=== PATIENT | female | born 1975 | race Hispanic/Latino ===

== ENCOUNTER 2022-10-05 13:04 | Inpatient (IN) | payer OTHER, MEDICAID ==
[~2022-10-05] VITALS: Ht 160 cm; Wt 168.2 kg
[~2022-10-05 13:04] MED LIST: AEC81 PO; AMLO-258 PO; ATOR40TA71 PO; CALC-866 PO; FERR-72 PO; GABA-529 PO; LISI20TA24 PO; METF-444 PO; MULT-952 PO; OMEP40CA21 PO; SEMA2PEN SQ
[2022-10-05] MEDS ORDERED: 0.9%NACL 1000ML 1,000 ML IV ONE (14:30)
[2022-10-05 15:45] LABS: APPEARANCE,URINE CLOUDY (CLEAR); BILIRUBIN,URINE NEGATIVE (NEGATIVE); COLOR,URINE YELLOW (YELLOW); GLUCOSE, URINE (UA) NEGATIVE (NEGATIVE); KETONES,URINE NEGATIVE (NEGATIVE); LEUKOCYTE ESTERASE ,URINE 500 Leu/uL (NEGATIVE); NITRATE,URINE NEGATIVE (NEGATIVE); OCCULT BLOOD,URINE LARGE (NEGATIVE); PH,URINE 5.5 (5.0-8.0); PROTEIN,URINE 50 mg/dL (NEGATIVE); UROBILINOGEN,URINE 0.2 mg/dL (0.2-1.0)
[2022-10-05 15:47] LABS: ADD UA MICROSCOPIC YES
[2022-10-05 15:51] LABS: BACTERIA,URINE FEW /HPF (None Seen); MUCUS,URINE RARE LPF (None Seen); RBC,URINE TNTC /HPF (0-1); SQUAMOUS EPITHELIAL CELL,UR FEW /HPF (0-2); WBC,URINE 51-100 /HPF (0-1)
[2022-10-05 15:52] LABS: SARS-CoV-2, RNA, NAAT NEGATIVE SARS CoV-2 (NEGATIVE)
[2022-10-05 15:53] LABS: BASOPHILS # (AUTO) 0.05 K/uL (0.00-0.20); BASOPHILS % (AUTO) 0.3 % (0.0-5.0); EOSINOPHILS # (AUTO) 0.01 K/uL (0.00-0.70); EOSINOPHILS % (AUTO) 0.1 % (0.0-8.0); HEMATOCRIT 27.7 % (36-48); IMMATURE GRANULOCYTE ABSOLUTE 0.14 K/uL (0-1); LYMPHOCYTES # (AUTO) 0.3 K/uL (1.0-4.8); LYMPHOCYTES % (AUTO) 1.7 % (21.0-51.0); MEAN CORPUSCULAR HEMOGLOBIN 23.8 pg (27.0-33.0); MEAN CORPUSCULAR HGB CONC 29.2 g/dL (32.0-36.0); MEAN CORPUSCULAR VOLUME 81.5 fL (79-99); MONOCYTES # (AUTO) 0.5 K/uL (0.1-1.0); MONOCYTES % (AUTO) 2.6 % (3.0-13.0); NEUTROPHILS # (AUTO) 18.9 K/uL (1.8-7.7); NEUTROPHILS % (AUTO) 94.6 % (40.0-77.0); PLATELET COUNT (AUTO) 372 K/uL (130-400); RED CELL DISTRIBUTION WIDTH 17.6 % (11.0-15.5); WHITE BLOOD COUNT (AUTO) 19.9 K/uL (4.8-10.8)
[2022-10-05 15:56] LABS: RAPID GROUP A STREP negative (NEGATIVE)
[2022-10-05] MEDS ORDERED: CEFTRIAXONE 1G VIAL IM ONE (16:00)
[2022-10-05 16:06] LABS: INFLUENZA TYPE A Negative For Type A (NEGATIVE); INFLUENZA TYPE B Negative For Type B (NEGATIVE)
[2022-10-05 16:07] LABS: ALBUMIN 3.1 g/dL (3.5-5.0); BILIRUBIN,TOTAL 0.6 mg/dL (0.2-1.0); CREATININE 1.3 mg/dL (0.5-1.5); POTASSIUM 4.2 mmol/L (3.5-5.1); TOTAL PROTEIN, SERUM 7.6 g/dL (6.0-8.3)
[2022-10-05 16:26] LABS: BAND NEUTROPHILS % (MANUAL) 27 % (0-2); LYMPHOCYTES % (MANUAL) 3 % (22-44); MAN.DIFF COMMENT-IMPRESSION MANUAL DIFFERENTIAL; PLATELET MORPHOLOGY COMMENT ADEQUATE; SEGMENTED NEUTROPHILS % 70 % (40-70); TOTAL CELLS COUNTED 100; WBC MORPHOLOGY CONSISTENT W/DIFF
[2022-10-05] MEDS ORDERED: IOHEXOL 350 MG/ML 100ML INFUS..BTL IV ONE (17:13)
[2022-10-05] MEDS ORDERED: ONDANSETRON ODT 4MG TAB SL PRN (18:30)
[2022-10-05] MEDS ORDERED: ACETAMINOPHEN 325 MG TAB PO PRN (18:30)
[2022-10-05] MEDS ORDERED: LORA10TA7 PO (18:44)
[2022-10-05] MEDS ORDERED: [UNRECOGNIZED DRUG - CODE] MC (18:47)
[2022-10-05 22:55] VITALS: BP 98/48; PULSE 109; RESP 20
[2022-10-05 22:56] VITALS: O2SAT 2
[2022-10-06] VITALS (8 sets, daily range): BP systolic 100–128; BP diastolic 51–74; PULSE 86–108; RESP 17–24; O2SAT 2–98
[2022-10-06] MEDS ORDERED: ESCI-8 PO (01:36)
[2022-10-06 05:23] LABS: BASOPHILS # (AUTO) 0.03 K/uL (0.00-0.20); BASOPHILS % (AUTO) 0.3 % (0.0-5.0); EOSINOPHILS # (AUTO) 0.02 K/uL (0.00-0.70); EOSINOPHILS % (AUTO) 0.2 % (0.0-8.0); HEMATOCRIT 25.5 % (36-48); IMMATURE GRANULOCYTE ABSOLUTE 0.05 K/uL (0-1); LYMPHOCYTES # (AUTO) 0.9 K/uL (1.0-4.8); LYMPHOCYTES % (AUTO) 7.9 % (21.0-51.0); MEAN CORPUSCULAR HEMOGLOBIN 24.1 pg (27.0-33.0); MEAN CORPUSCULAR HGB CONC 29.4 g/dL (32.0-36.0); MONOCYTES # (AUTO) 1.1 K/uL (0.1-1.0); MONOCYTES % (AUTO) 9.2 % (3.0-13.0); NEUTROPHILS # (AUTO) 9.7 K/uL (1.8-7.7); PLATELET COUNT (AUTO) 271 K/uL (130-400); RED BLOOD CELL COUNT(AUTO) 3.11 MIL/uL (4.00-5.50); WHITE BLOOD COUNT (AUTO) 11.8 K/uL (4.8-10.8)
[2022-10-06 05:32] LABS: MAGNESIUM 1.1 mg/dL (1.80-2.40); POTASSIUM 4.2 mmol/L (3.5-5.1)
[2022-10-06] MEDS: MAGNESIUM 2GM PREMIX 50ML 50 ML IV PRN ×3 (06:43→21:12)
[2022-10-06] MEDS: ENOXAPARIN SODIUM 30 MG/0.3 ML SQ SCH (09:12)
[2022-10-06 13:49] LABS: TOTAL IRON BINDING CAPACITY 280 mcg/dL (250-450)
[2022-10-06 14:13] LABS: % IRON SATURATION 1.7 % (22-44); IRON, SERUM < 5 mcg/dL (50-170)
[2022-10-06] MEDS: CEFTRIAXONE 1G VIAL IVPB SCH (16:42)
[2022-10-06] MEDS ORDERED: MAGNESIUM 4GM PREMIX 100ML 100 ML IV PRN (17:00)
[2022-10-06 17:02] LABS: FERRITIN 44 ng/mL (15-150)
[2022-10-07] VITALS (20 sets, daily range): BP systolic 99–138; BP diastolic 58–78; PULSE 64–94; RESP 20–24; O2SAT 96–98
[2022-10-07] MEDS: ENOXAPARIN SODIUM 30 MG/0.3 ML SQ SCH (09:00)
[2022-10-07 10:29] LABS: CREATININE 0.8 mg/dL (0.5-1.5); POTASSIUM 4.3 mmol/L (3.5-5.1)
[2022-10-07] MEDS ORDERED: PROPOFOL 10 MG/ML 20ML VIAL IV ONE (12:04)
[2022-10-07] MEDS ORDERED: LIDOCAINE PF 100MG/5ML (2%) SYRINGE 5ML ONE (12:05)
[2022-10-07] MEDS ORDERED: KETAMINE 50MG/ML SYRINGE 50 MG/ML DISP.SYRIN ONE (12:08)
[2022-10-07] MEDS ORDERED: MIDAZOLAM HCL 1 MG/ML 2ML VIAL ONE (12:11)
[2022-10-07] MEDS ORDERED: DEXAMETHASONE SOD PHOSPHATE 10MG/ML 1ML VIAL ONE (12:24)
[2022-10-07] MEDS ORDERED: BISACODYL 5 MG TABLET.DR PO ONE (14:00)
[2022-10-07 14:35] LABS: HEMATOCRIT 23.8 % (36-48); MEAN CORPUSCULAR HEMOGLOBIN 24.1 pg (27.0-33.0); MEAN CORPUSCULAR HGB CONC 29.4 g/dL (32.0-36.0); MEAN CORPUSCULAR VOLUME 82.1 fL (79-99); RED BLOOD CELL COUNT(AUTO) 2.9 MIL/uL (4.00-5.50); RED CELL DISTRIBUTION WIDTH 17.5 % (11.0-15.5); WHITE BLOOD COUNT (AUTO) 6.9 K/uL (4.8-10.8)
[2022-10-07] MEDS ORDERED: PHARMACY COMMUNICATION MISC SCH (15:00)
[2022-10-07] MEDS ORDERED: LACTULOSE 20 GM/30 ML UDCUP PO ONE (15:00)
[2022-10-07] MEDS ORDERED: PEG 3350/NA SULF,BICARB,CL/KCL 4000 ML SOLN PO ONE (16:00)
[2022-10-07] MEDS: CEFTRIAXONE 1G VIAL IVPB SCH (18:16)
[2022-10-08] VITALS (27 sets, daily range): BP systolic 96–137; BP diastolic 53–78; PULSE 54–89; RESP 14–22; O2SAT 98–99
[2022-10-08 06:43] LABS: HEMATOCRIT 23.2 % (36-48); MEAN CORPUSCULAR HEMOGLOBIN 24.1 pg (27.0-33.0); MEAN CORPUSCULAR HGB CONC 30.6 g/dL (32.0-36.0); MEAN CORPUSCULAR VOLUME 78.9 fL (79-99); RED BLOOD CELL COUNT(AUTO) 2.94 MIL/uL (4.00-5.50); RED CELL DISTRIBUTION WIDTH 17.2 % (11.0-15.5); WHITE BLOOD COUNT (AUTO) 6.3 K/uL (4.8-10.8)
[2022-10-08 06:51] LABS: CREATININE 0.9 mg/dL (0.5-1.5); POTASSIUM 3.9 mmol/L (3.5-5.1)
[2022-10-08] MEDS: ENOXAPARIN SODIUM 30 MG/0.3 ML SQ SCH (08:27)
[2022-10-08] MEDS: PANTOPRAZOLE 40 MG TAB DR PO SCH (08:28)
[2022-10-08] MEDS ORDERED: LIDOCAINE PF 100MG/5ML (2%) SYRINGE 5ML ONE (13:22)
[2022-10-08] MEDS ORDERED: PROPOFOL 10 MG/ML 20ML VIAL IV ONE (13:22)
[2022-10-08] MEDS: CEFTRIAXONE 1G VIAL IVPB SCH (17:22)
[2022-10-09] VITALS (33 sets, daily range): BP systolic 99–140; BP diastolic 32–78; PULSE 59–87; RESP 16–22; O2SAT 95–100
[2022-10-09 05:10] LABS: HEMATOCRIT 25.3 % (36-48); MEAN CORPUSCULAR HEMOGLOBIN 24.2 pg (27.0-33.0); MEAN CORPUSCULAR VOLUME 80.6 fL (79-99); RED BLOOD CELL COUNT(AUTO) 3.14 MIL/uL (4.00-5.50); RED CELL DISTRIBUTION WIDTH 17.2 % (11.0-15.5); WHITE BLOOD COUNT (AUTO) 6.5 K/uL (4.8-10.8)
[2022-10-09 05:23] LABS: CREATININE 1.1 mg/dL (0.5-1.5); POTASSIUM 3.8 mmol/L (3.5-5.1)
[2022-10-09] MEDS: ENOXAPARIN SODIUM 30 MG/0.3 ML SQ SCH (09:00)
[2022-10-09] MEDS: PANTOPRAZOLE 40 MG TAB DR PO SCH (09:32)
[2022-10-09] MEDS ORDERED: KETAMINE 50MG/ML SYRINGE 50 MG/ML DISP.SYRIN ONE (11:44)
[2022-10-09] MEDS ORDERED: PROPOFOL 10 MG/ML 20ML VIAL IV ONE (11:45)
[2022-10-09] MEDS ORDERED: MIDAZOLAM HCL 1 MG/ML 2ML VIAL ONE (11:45)
[2022-10-09] MEDS ORDERED: FENTANYL CITRATE PF 50 MCG/1 ML 2ML VIAL ONE (11:45)
[2022-10-09] MEDS ORDERED: SUCCINYLCHOLINE CHLORIDE 20 MG/ML 10 ML VIAL ONE (11:45)
[2022-10-09] MEDS ORDERED: LIDOCAINE PF 100MG/5ML (2%) SYRINGE 5ML ONE (11:45)
[2022-10-09] MEDS ORDERED: ONDANSETRON 4MG INJ ONE (12:01)
[2022-10-09] MEDS ORDERED: ROCURONIUM 10MG/1ML SYR 10 MG/ML ML ONE (12:11)
[2022-10-09] MEDS ORDERED: SUGAMMADEX SODIUM 200 MG/2 ML VIAL IV ONE (12:20)
[2022-10-09] MEDS: CEFTRIAXONE 1G VIAL IVPB SCH (16:47)
[2022-10-09] MEDS: MORPHINE 2 MG SYG IVP PRN ×2 (16:47→21:31)
[2022-10-10] VITALS (8 sets, daily range): BP systolic 117–134; BP diastolic 61–73; PULSE 63–71; RESP 16–21; O2SAT 95–97
[2022-10-10 05:30] LABS: HEMATOCRIT 24.3 % (36-48); MEAN CORPUSCULAR HEMOGLOBIN 24.5 pg (27.0-33.0); MEAN CORPUSCULAR HGB CONC 29.2 g/dL (32.0-36.0); MEAN CORPUSCULAR VOLUME 83.8 fL (79-99); RED BLOOD CELL COUNT(AUTO) 2.9 MIL/uL (4.00-5.50); RED CELL DISTRIBUTION WIDTH 17.1 % (11.0-15.5); WHITE BLOOD COUNT (AUTO) 7.1 K/uL (4.8-10.8)
[2022-10-10 05:38] LABS: CREATININE 1.2 mg/dL (0.5-1.5); MAGNESIUM 1.6 mg/dL (1.80-2.40); POTASSIUM 3.6 mmol/L (3.5-5.1)
[2022-10-10] MEDS: MAGNESIUM 2GM PREMIX 50ML 50 ML IV PRN (06:27)
[2022-10-10] MEDS: MORPHINE 2 MG SYG IVP PRN (06:55)
[2022-10-10] MEDS: PANTOPRAZOLE 40 MG TAB DR PO SCH (09:22)
[2022-10-10] MEDS: ENOXAPARIN SODIUM 30 MG/0.3 ML SQ SCH (09:24)
[2022-10-10] MEDS: CEFTRIAXONE 1G VIAL IVPB SCH (16:00)
[2022-10-11 05:00] VITALS: BP 136/78; PULSE 67; RESP 16
[2022-10-11 05:20] LABS: HEMATOCRIT 28.2 % (36-48)
[2022-10-11] MEDS: PANTOPRAZOLE 40 MG TAB DR PO SCH (07:50)
[2022-10-11] MEDS: ENOXAPARIN SODIUM 30 MG/0.3 ML SQ SCH (07:53)
[2022-10-11 08:00] VITALS: BP 150/84; PULSE 66; RESP 18; O2SAT 95
[2022-10-11 08:06] VITALS: PULSE 70; RESP 20; O2SAT 93
== END 2022-10-11 11:50 | disposition home or self-care (01) | DRG 853 ==
LOC: EDH 13:04 → EDHIP 18:20 → 3BH 22:55
PROVIDERS: ADMIT Internal Medicine Infectious Disease; ATTEND Internal Medicine Infectious Disease
PROC: 0DB98ZX Excision of Duodenum, Via Natural or Artificial Opening Endoscopic, Diagnostic (ICD-10-PCS; 2022-10-07)
PROC: 0DB78ZX Excision of Stomach, Pylorus, Via Natural or Artificial Opening Endoscopic, Diagnostic (ICD-10-PCS; 2022-10-07)
PROC: 0DB58ZX Excision of Esophagus, Via Natural or Artificial Opening Endoscopic, Diagnostic (ICD-10-PCS; 2022-10-07)
PROC: 0DB78ZZ Excision of Stomach, Pylorus, Via Natural or Artificial Opening Endoscopic (ICD-10-PCS; 2022-10-07)
PROC: 0DBK8ZX Excision of Ascending Colon, Via Natural or Artificial Opening Endoscopic, Diagnostic (ICD-10-PCS; 2022-10-08)
PROC: 0DBL8ZX Excision of Transverse Colon, Via Natural or Artificial Opening Endoscopic, Diagnostic (ICD-10-PCS; 2022-10-08)
PROC: 0DBN8ZX Excision of Sigmoid Colon, Via Natural or Artificial Opening Endoscopic, Diagnostic (ICD-10-PCS; 2022-10-08)
PROC: 0DBP8ZX Excision of Rectum, Via Natural or Artificial Opening Endoscopic, Diagnostic (ICD-10-PCS; 2022-10-08)
PROC: 0DBM8ZX Excision of Descending Colon, Via Natural or Artificial Opening Endoscopic, Diagnostic (ICD-10-PCS; 2022-10-08)
PROC: 0DBH8ZX Excision of Cecum, Via Natural or Artificial Opening Endoscopic, Diagnostic (ICD-10-PCS; 2022-10-08)
PROC: 30233N1 Transfusion of Nonautologous Red Blood Cells into Peripheral Vein, Percutaneous Approach (ICD-10-PCS; 2022-10-08)
PROC: 0UDB8ZZ Extraction of Endometrium, Via Natural or Artificial Opening Endoscopic (ICD-10-PCS; principal; 2022-10-09 11:44)
DX: A41.50 Gram-negative sepsis, unspecified (principal); R57.1 Hypovolemic shock; N39.0 Urinary tract infection, site not specified; Z68.44 Body mass index [BMI] 60.0-69.9, adult; K21.00 Gastro-esophageal reflux disease with esophagitis, without bleeding; Z20.822 Contact with and (suspected) exposure to COVID-19; E66.01 Morbid (severe) obesity due to excess calories; D64.9 Anemia, unspecified; I10 Essential (primary) hypertension; E11.9 Type 2 diabetes mellitus without complications; N92.0 Excessive and frequent menstruation with regular cycle; K29.00 Acute gastritis without bleeding; B96.20 Unspecified Escherichia coli [E. coli] as the cause of diseases classified elsewhere; E78.5 Hyperlipidemia, unspecified; J44.9 Chronic obstructive pulmonary disease, unspecified; Z80.0 Family history of malignant neoplasm of digestive organs; Z80.49 Family history of malignant neoplasm of other genital organs; Z82.3 Family history of stroke; Z82.49 Family history of ischemic heart disease and other diseases of the circulatory system; Z83.3 Family history of diabetes mellitus; Z86.16 Personal history of COVID-19
CPT/HCPCS: 36415; 36430; 43239; 43251; 45380; 71045; 71270; 76856; 80048; 80053; 81001; 82607; 82728; 82948; 83540; 83550; 83735; 84702; 84703; 85014; 85018; 85025; 85027; 85378; 86677; 86850; 86900; 86901; 86923; 87077; 87088; 87186; 87635; 87804; 87880; 88305; 93005; 93970; 94660; A4355; A4606; C9803; G0378; J0330; J0696; J1100; J1650; J2001; J2250; J2270; J2405; J2704; J3010; J3475; J7030; P9016; Q9967; A4215; A4216; A4222; A4223; A4351; A4620; A4657; A7002; J3490

== ENCOUNTER 2023-07-19 08:23 | Inpatient (IN) | payer MEDICARE ==
[2023-07-19] VITALS (22 sets, daily range): BP systolic 96–151; BP diastolic 59–106; PULSE 77–122; RESP 16–30; TEMP 100; O2SAT 94–98
[~2023-07-19] VITALS: Ht 160 cm; Wt 177.2 kg
[~2023-07-19 08:23] MED LIST changes: +ALBU90AE2 IH; +ASCO500T20 PO; +DAPA10TA PO; +ESCI-8 PO; +GLYB2.5T5 PO; +LORA10TA7 PO; +MAGN400T40 PO; +MEGE40TA8 PO; -OMEP40CA21 PO; +PANT40TA54 PO
[2023-07-19] MEDS: ACETAMINOPHEN 500 MG TABLET PO ONE (08:56)
[2023-07-19] MEDS: 0.9%NACL 1000ML 1,572 ML IV ONE (08:56)
[2023-07-19] MEDS: 0.9%NACL 1000ML 1,000 ML IV ONE (08:56)
[2023-07-19] MEDS: CEFTRIAXONE 2GM VIAL IVPB ONE (08:59)
[2023-07-19] MEDS: PANTOPRAZOLE 40 MG/VIAL IVP ONE (08:59)
[2023-07-19 09:03] LABS: BASOPHILS # (AUTO) 0.06 K/uL (0.00-0.20); BASOPHILS % (AUTO) 0.3 % (0.0-5.0); EOSINOPHILS # (AUTO) 0.07 K/uL (0.00-0.70); EOSINOPHILS % (AUTO) 0.4 % (0.0-8.0); HEMATOCRIT 38.7 % (36-48); IMMATURE GRANULOCYTE ABSOLUTE 0.14 K/uL (0-1); LYMPHOCYTES # (AUTO) 0.8 K/uL (1.0-4.8); MEAN CORPUSCULAR HEMOGLOBIN 25.1 pg (27.0-33.0); MEAN CORPUSCULAR HGB CONC 30.2 g/dL (32.0-36.0); MEAN CORPUSCULAR VOLUME 82.9 fL (79-99); MONOCYTES # (AUTO) 0.6 K/uL (0.1-1.0); NEUTROPHILS # (AUTO) 17.4 K/uL (1.8-7.7); NEUTROPHILS % (AUTO) 91.6 % (40.0-77.0); PLATELET COUNT (AUTO) 279 K/uL (130-400); RED BLOOD CELL COUNT(AUTO) 4.67 MIL/uL (4.00-5.50); RED CELL DISTRIBUTION WIDTH 17.2 % (11.0-15.5)
[2023-07-19 09:07] LABS: RAPID GROUP A STREP negative (NEGATIVE)
[2023-07-19 09:15] LABS: INFLUENZA TYPE A Negative For Type A (NEGATIVE); INFLUENZA TYPE B Negative For Type B (NEGATIVE); SARS-CoV-2, RNA, NAAT NEGATIVE SARS CoV-2 (NEGATIVE)
[2023-07-19 09:16] LABS: CREATININE 1.1 mg/dL (0.5-1.0)
[2023-07-19 09:21] LABS: ABG OXYGEN SATURATION 38.5 % (95.0-99.0); BASE EXCESS,VENOUS BLOOD GAS -0.3 (-2.0-3.0); HCO3,VENOUS BLOOD GAS 25.2 (21.0-28.0); PCO2,VENOUS BLOOD GAS 44 (32-45); PH,VENOUS BLOOD GAS 7.374 (7.350-7.450); VENT MODE, BG NC (ROOM AIR)
[2023-07-19 09:21] LABS: ALBUMIN 3.3 g/dL (3.5-5.0); BILIRUBIN,TOTAL 0.7 mg/dL (0.2-1.0); TOTAL PROTEIN, SERUM 7.7 g/dL (6.0-8.3)
[2023-07-19] MEDS: MAGNESIUM 2GM PREMIX 50ML 50 ML IV SCH (09:39)
[2023-07-19] MEDS: AMIODARONE 150MG VIAL ONE (10:14)
[2023-07-19] MEDS: AMIODARONE 150MG VIAL 150 MG in DEXTROSE 5%-WATER 100 ML IV SCH (10:16)
[2023-07-19] MEDS: AMIODARONE 900MG VIAL 360 MG in DEXTROSE 5%-WATER 200 ML IV SCH (10:29)
[2023-07-19] MEDS: SIMETHICONE 80 MG TAB.CHEW PO SCH (10:46)
[2023-07-19] MEDS: SIMETHICONE 80 MG TAB.CHEW ONE ×2 (10:46)
[2023-07-19] MEDS ORDERED: ONDANSETRON 4MG INJ IVP PRN (11:00)
[2023-07-19] MEDS: CEFTRIAXONE 2GM VIAL IVPB SCH (11:00)
[2023-07-19] MEDS: METOPROLOL TARTRATE 25 MG TAB PO SCH (11:19)
[2023-07-19] MEDS: ENOXAPARIN SODIUM 40 MG/0.4 ML SYRINGE SQ ONE (11:28)
[2023-07-19] MEDS: INSULIN HUMULIN R 100 UNIT/ML 3ML SQ SCH (11:30)
[2023-07-19] MEDS: DOXYCYCLINE 100MG+NS 250ML 250 ML IV SCH (11:33)
[2023-07-19] MEDS: METOPROLOL TARTRATE 1 MG/ML 5ML VIAL IV ONE (11:56)
[2023-07-19 12:13] LABS: ABG BASE EXCESS -2.5 mmol/L (-2.0-3.0); ABG HCO3 20.7 mmol/L (21.0-28.0); ABG PCO2 31 mmHg (32-45); ABG PH 7.439 (7.35-7.450); CARBON MONOXIDE 0.8; DEVICE COMMENT NELLY NP LR; HHb 5.9; PO2, ARTERIAL BG 72.5 mmHg (83.0-108.0); VENT MODE, BG 3L NC (ROOM AIR)
[2023-07-19] MEDS ORDERED: PHENYLEPHRINE HCL 10 MG in 0.9% NACL 250ML 250 ML IV PRN (12:30)
[2023-07-19] MEDS: SOLU-MEDROL 125MG VIAL IVP SCH (12:58)
[2023-07-19] MEDS: FUROSEMIDE 40MG VIAL IV ONE (12:58)
[2023-07-19] MEDS ORDERED: EMPA25TA PO (13:45)
[2023-07-19] MEDS ORDERED: CETI10TA87 PO (13:45)
[2023-07-19] MEDS: SODIUM CHLORIDE 3% FOR INHALATION 4 ML/AMP VIAL.NEB IH ONE (14:21)
[2023-07-19] MEDS ORDERED: NON-FORMULARY MEDICATION 1 EACH (Magnesium Oxide (Magnesium) 400 MG) PO SCH (15:30)
[2023-07-19] MEDS ORDERED: POTASSIUM CHLORIDE 20MEQ/100ML 100 ML IV PRN ×2 (16:00)
[2023-07-19] MEDS ORDERED: DEXTROSE 50%-WATER 50 ML DISP.SYRIN IV PRN (16:00)
[2023-07-19] MEDS ORDERED: POTASSIUM CHLORIDE 10% ELIXIR 20 MEQ/15 ML UDCUP PO PRN (16:00)
[2023-07-19] MEDS ORDERED: GLUCAGON 1MG KIT 1 MG ML IM PRN (16:00)
[2023-07-19] MEDS ORDERED: KCL 20 MEQ ERTAB PO PRN (16:00)
[2023-07-19] MEDS: AMIODARONE 900MG VIAL 540 MG in DEXTROSE 5%-WATER 300 ML IV SCH (17:27)
[2023-07-19] MEDS: GABAPENTIN 100 MG CAPSULE PO SCH (20:41)
[2023-07-19] MEDS: SOLU-MEDROL 40MG VIAL IVP SCH (20:41)
[2023-07-19] MEDS: MAGNESIUM OXIDE 400 MG TABLET PO SCH (20:41)
[2023-07-19] MEDS: ENOXAPARIN SODIUM 40 MG/0.4 ML SYRINGE SQ SCH (20:42)
[2023-07-19] MEDS ORDERED: VANCOMYCIN PROTOCOL PER PHARMACY IV SCH (23:00)
[2023-07-20] VITALS (14 sets, daily range): BP systolic 112–153; BP diastolic 68–86; PULSE 69–83; RESP 15–33; O2SAT 92–98
[2023-07-20] MEDS: VANCOMYCIN 1G/250ML KIT 250 ML IV ONE (00:30)
[2023-07-20] MEDS: ACETAMINOPHEN 325 MG TAB PO PRN (04:05)
[2023-07-20 04:29] LABS: BASOPHILS # (AUTO) 0.01 K/uL (0.00-0.20); BASOPHILS % (AUTO) 0.1 % (0.0-5.0); IMMATURE GRANULOCYTE ABSOLUTE 0.07 K/uL (0-1); LYMPHOCYTES # (AUTO) 0.8 K/uL (1.0-4.8); LYMPHOCYTES % (AUTO) 5.1 % (21.0-51.0); MEAN CORPUSCULAR HEMOGLOBIN 25.2 pg (27.0-33.0); MEAN CORPUSCULAR HGB CONC 31.7 g/dL (32.0-36.0); MEAN CORPUSCULAR VOLUME 79.5 fL (79-99); MONOCYTES # (AUTO) 0.1 K/uL (0.1-1.0); MONOCYTES % (AUTO) 0.8 % (3.0-13.0); NEUTROPHILS # (AUTO) 14.6 K/uL (1.8-7.7); NEUTROPHILS % (AUTO) 93.6 % (40.0-77.0); PLATELET COUNT (AUTO) 281 K/uL (130-400); RED BLOOD CELL COUNT(AUTO) 4.53 MIL/uL (4.00-5.50); RED CELL DISTRIBUTION WIDTH 17.4 % (11.0-15.5); WHITE BLOOD COUNT (AUTO) 15.6 K/uL (4.8-10.8)
[2023-07-20 04:51] LABS: HEMOGLOBIN A1C 9.2 % (4.0-6.0)
[2023-07-20 05:02] LABS: ALBUMIN 2.9 g/dL (3.5-5.0); BILIRUBIN,TOTAL 0.4 mg/dL (0.2-1.0); MAGNESIUM 2.1 mg/dL (1.80-2.40); POTASSIUM 4.1 mmol/L (3.5-5.1); TOTAL PROTEIN, SERUM 7.4 g/dL (6.0-8.3)
[2023-07-20] MEDS: (Cholecalciferol (Vitamin D3) (Vitamin D3) 125 MCG) PO SCH (09:00)
[2023-07-20] MEDS: MULTIVIT WITH CALCIUM IRON MIN PO SCH (09:00)
[2023-07-20] MEDS: VANCOMYCIN 1.5 GM/250 ML BAG 250 ML IV SCH (09:12)
[2023-07-20] MEDS: ASCORBIC ACID 500 MG TAB PO SCH (09:12)
[2023-07-20] MEDS: CETIRIZINE HCL 5 MG TABLET PO SCH (09:13)
[2023-07-20] MEDS: FERROUS SULFATE 325 MG TABLET.DR PO SCH (09:13)
[2023-07-20] MEDS: ATORVASTATIN 40 MG TABLET PO SCH (09:13)
[2023-07-20] MEDS: ASPIRIN 81 MG EC TAB PO SCH (09:13)
[2023-07-20 09:26] LABS: APPEARANCE,URINE CLEAR (CLEAR); BILIRUBIN,URINE NEGATIVE (NEGATIVE); COLOR,URINE LIGHT-YELLOW (YELLOW); GLUCOSE, URINE (UA) >=1000 mg/dL (NEGATIVE); KETONES,URINE NEGATIVE (NEGATIVE); LEUKOCYTE ESTERASE ,URINE 75 Leu/uL (NEGATIVE); NITRATE,URINE NEGATIVE (NEGATIVE); OCCULT BLOOD,URINE NEGATIVE (NEGATIVE); PROTEIN,URINE NEGATIVE (NEGATIVE); UROBILINOGEN,URINE 0.2 mg/dL (0.2-1.0)
[2023-07-20 09:28] LABS: ADD UA MICROSCOPIC YES
[2023-07-20 09:30] LABS: BACTERIA,URINE RARE /HPF (None Seen); MUCUS,URINE RARE LPF (None Seen); SQUAMOUS EPITHELIAL CELL,UR RARE /HPF (0-2); WBC,URINE 26-50 /HPF (0-1)
[2023-07-20] MEDS: MAGNESIUM OXIDE 400 MG TABLET PO SCH (11:28)
[2023-07-20] MEDS: SOLU-MEDROL 40MG VIAL IVP SCH (11:28)
[2023-07-20] MEDS: SOLU-MEDROL 40MG VIAL ONE (11:35)
[2023-07-20] MEDS: INSULIN GLARGINE 100 UNITS/ML 10 ML VIAL SQ SCH (21:12)
[2023-07-21] VITALS (10 sets, daily range): BP systolic 126–157; BP diastolic 69–93; PULSE 61–76; RESP 18–22; O2SAT 94–96
[2023-07-21 03:34] LABS: BASOPHILS # (AUTO) 0.01 K/uL (0.00-0.20); BASOPHILS % (AUTO) 0.1 % (0.0-5.0); HEMATOCRIT 37.8 % (36-48); IMMATURE GRANULOCYTE ABSOLUTE 0.06 K/uL (0-1); LYMPHOCYTES % (AUTO) 7.9 % (21.0-51.0); MEAN CORPUSCULAR HGB CONC 29.4 g/dL (32.0-36.0); MEAN CORPUSCULAR VOLUME 85.1 fL (79-99); MONOCYTES # (AUTO) 0.6 K/uL (0.1-1.0); MONOCYTES % (AUTO) 5.2 % (3.0-13.0); NEUTROPHILS # (AUTO) 10.6 K/uL (1.8-7.7); NEUTROPHILS % (AUTO) 86.3 % (40.0-77.0); PLATELET COUNT (AUTO) 289 K/uL (130-400); RED BLOOD CELL COUNT(AUTO) 4.44 MIL/uL (4.00-5.50); RED CELL DISTRIBUTION WIDTH 17.3 % (11.0-15.5); WHITE BLOOD COUNT (AUTO) 12.3 K/uL (4.8-10.8)
[2023-07-21 03:35] LABS: CREATININE 1.2 mg/dL (0.5-1.0); POTASSIUM 4.9 mmol/L (3.5-5.1)
[2023-07-21] MEDS: POLYETHYLENE GLYCOL 3350 17 GM POWD.PACK PO SCH (08:09)
[2023-07-21] MEDS: PANTOPRAZOLE 40 MG TAB DR PO SCH (08:10)
[2023-07-21] MEDS: FUROSEMIDE 40 MG TABLET PO SCH (08:10)
[2023-07-21] MEDS: CEFEPIME HCL 2 GM VIAL IVPB SCH (11:49)
[2023-07-21] MEDS: INSULIN GLARGINE 100 UNITS/ML 10 ML VIAL SQ SCH (20:34)
[2023-07-21] MEDS: SOLU-MEDROL 40MG VIAL IVP SCH (20:35)
[2023-07-22] VITALS (9 sets, daily range): BP systolic 150–187; BP diastolic 89–100; PULSE 55–78; RESP 18–22; O2SAT 97
[2023-07-22 04:01] LABS: BASOPHILS # (AUTO) 0.01 K/uL (0.00-0.20); BASOPHILS % (AUTO) 0.1 % (0.0-5.0); HEMATOCRIT 34.4 % (36-48); IMMATURE GRANULOCYTE ABSOLUTE 0.09 K/uL (0-1); LYMPHOCYTES # (AUTO) 1.4 K/uL (1.0-4.8); MEAN CORPUSCULAR HEMOGLOBIN 24.7 pg (27.0-33.0); MEAN CORPUSCULAR HGB CONC 30.8 g/dL (32.0-36.0); MONOCYTES # (AUTO) 1.1 K/uL (0.1-1.0); MONOCYTES % (AUTO) 8.6 % (3.0-13.0); NEUTROPHILS # (AUTO) 9.8 K/uL (1.8-7.7); NEUTROPHILS % (AUTO) 79.6 % (40.0-77.0); PLATELET COUNT (AUTO) 327 K/uL (130-400); RED CELL DISTRIBUTION WIDTH 16.9 % (11.0-15.5); WHITE BLOOD COUNT (AUTO) 12.3 K/uL (4.8-10.8)
[2023-07-22 04:43] LABS: CREATININE 1.1 mg/dL (0.5-1.0); POTASSIUM 4.7 mmol/L (3.5-5.1)
== END 2023-07-22 18:45 | disposition home or self-care (01) | DRG 871 ==
LOC: EDH 08:23 → EDHIP 10:47 → 2BH 11:35 → 2AH 07-20 13:47
PROVIDERS: ADMIT Internal Medicine Infectious Disease; ATTEND Internal Medicine Infectious Disease
PROC: 5A09357 Assistance with Respiratory Ventilation, Less than 24 Consecutive Hours, Continuous Positive Airway Pressure (ICD-10-PCS; principal; 2023-07-19)
PROC: 5A09357 Assistance with Respiratory Ventilation, Less than 24 Consecutive Hours, Continuous Positive Airway Pressure (ICD-10-PCS; 2023-07-21)
DX: A41.9 Sepsis, unspecified organism (principal); J15.9 Unspecified bacterial pneumonia; J96.21 Acute and chronic respiratory failure with hypoxia; L03.116 Cellulitis of left lower limb; I47.20 Ventricular tachycardia, unspecified; J44.0 Chronic obstructive pulmonary disease with (acute) lower respiratory infection; J44.1 Chronic obstructive pulmonary disease with (acute) exacerbation; N17.9 Acute kidney failure, unspecified; E66.2 Morbid (severe) obesity with alveolar hypoventilation; Z68.44 Body mass index [BMI] 60.0-69.9, adult; Z20.822 Contact with and (suspected) exposure to COVID-19; E83.42 Hypomagnesemia; E88.09 Other disorders of plasma-protein metabolism, not elsewhere classified; I10 Essential (primary) hypertension; R65.20 Severe sepsis without septic shock; I25.10 Atherosclerotic heart disease of native coronary artery without angina pectoris; K21.00 Gastro-esophageal reflux disease with esophagitis, without bleeding; E78.00 Pure hypercholesterolemia, unspecified; E11.65 Type 2 diabetes mellitus with hyperglycemia; D50.9 Iron deficiency anemia, unspecified; Z85.42 Personal history of malignant neoplasm of other parts of uterus; Z86.16 Personal history of COVID-19; Z87.01 Personal history of pneumonia (recurrent); Z99.81 Dependence on supplemental oxygen; Z90.49 Acquired absence of other specified parts of digestive tract
CPT/HCPCS: 36415; 36600; 71045; 80048; 80053; 80202; 81001; 82435; 82550; 82803; 82947; 82948; 83036; 83605; 83735; 83880; 84132; 84295; 84443; 84484; 85018; 85025; 85378; 87040; 87071; 87088; 87205; 87635; 87804; 87880; 93005; 93970; 94640; 94660; 96365; 96366; 96368; 96375; 99291; 99292; C9113; G0378; J0282; J0692; J0696; J1650; J1815; J1940; J2919; J2920; J3370; J3475; J3490; J7030; J7060

== ENCOUNTER → 2023-09-24 | Outpatient (CLI) | payer MEDICARE ==
[~2023-09-24] MED LIST changes: -ALBU90AE2 IH; +ALBU90AE3 IH; +CETI10TA87 PO; -DAPA10TA PO; +EMPA25TA PO; -ESCI-8 PO; -GLYB2.5T5 PO; -LORA10TA7 PO; +PERFLUTREN PROTEIN-A MICROSPHR 0.22 MG/ML VIAL IV ONE
== END | disposition home or self-care (01) ==
LOC: SHCH 11:58
PROVIDERS: ATTEND Internal Medicine Cardiovascular Disease
DX: I47.20 Ventricular tachycardia, unspecified (principal)
CPT/HCPCS: C8929; Q9956

== ENCOUNTER → 2023-12-11 | Outpatient (CLI) | payer MEDICARE ==
[~2023-12-11] MED LIST changes: -PERFLUTREN PROTEIN-A MICROSPHR 0.22 MG/ML VIAL IV ONE
== END | disposition home or self-care (01) ==
LOC: SHCH 13:20
PROVIDERS: ATTEND Internal Medicine Cardiovascular Disease
DX: I87.2 Venous insufficiency (chronic) (peripheral) (principal); I87.1 Compression of vein
CPT/HCPCS: 93970